=== PATIENT | male | born 1990 | race American Indian/Alaskan Native ===

== ENCOUNTER 2022-03-02 20:19 | Emergency (ER) | payer MEDICAID, OTHER ==
[2022-03-02] MEDS ORDERED: Acyclovir 200 MG Cap PO ONE ×2 (20:59)
[2022-03-02] MEDS ORDERED: predniSONE 20 MG Tab PO ONE (20:59)
[2022-03-02 21:53] LABS: CORONAVIRUS COVID-19 NAA NEGATIVE (NEGATIVE); RESPIRATORY SYNCYTIAL VIR NAA NEGATIVE (NEGATIVE)
== END 2022-03-02 22:13 | disposition home or self-care (01) ==
LOC: DL.ED 20:19
DX: G51.0 Bell's palsy (principal); Z88.8 Allergy status to other drugs, medicaments and biological substances; Z20.822 Contact with and (suspected) exposure to COVID-19
CPT/HCPCS: 0241U; 70450; 82947; 93005; 99284; A9270; J7512